=== PATIENT | male | born 1990 | race African-American/Black ===

== ENCOUNTER 2025-05-05 13:09 | Emergency (ER) | payer BC ==
[2025-05-05] MEDS: Ketorolac 60 MG/2 ML SDV IM ONE (13:58)
== END 2025-05-05 15:57 | disposition home or self-care (01) ==
LOC: JD.ED 13:09
DX: B34.9 Viral infection, unspecified (principal); J02.9 Acute pharyngitis, unspecified
CPT/HCPCS: 87428; 87651; 96372; 99283; A9270; J1885